=== PATIENT | female | born 1970 | race Caucasian/White ===

== ENCOUNTER 2023-07-17 15:49 | Inpatient (IN) | payer BC ==
[~2023-07-17] VITALS: Ht 154.9 cm; Wt 91.0 kg
[2023-07-17] MEDS: normal saline 1000ML IV soln IVB ONE ×2 (18:08→20:16)
[2023-07-17 18:16] LABS: BASOPHILS # (AUTO) 0.1 X10'3 (0-0.2); EOSINOPHILS % (AUTO) 0.3 % (0-6); HEMOGLOBIN 12.2 g/dl (12.0-16.0); LYMPHOCYTES # (AUTO) 1.7 X10'3 (1.1-4.8); MEAN CORPUSCULAR HEMOGLOBIN 29.1 PG (27.0-31.0); MEAN CORPUSCULAR VOLUME 88.4 FL (78-98); MEAN PLATELET VOLUME 8.6 FL (7.4-10.4); MONOCYTES # (AUTO) 0.4 X10'3 (0-0.9); MONOCYTES % (AUTO) 3.7 % (2-12); NEUTROPHILS # (AUTO) 8.3 X10'3 (1.8-7.7); PLATELET COUNT 333 X10'3 (140-440); RED BLOOD COUNT 4.19 X10'6 (4.20-5.60); RED CELL DISTRIBUTION WIDTH 15.2 % (11.5-14.5); WHITE BLOOD COUNT 10.5 X10'3 (4.5-11.0)
[2023-07-17] MEDS: LORazepam 2 mg/ml vial IV ONE (19:15)
[2023-07-17 19:45] LABS: D-DIMER 6.69 MG/L FEU (0-0.50)
[2023-07-17 19:48] LABS: ALBUMIN 2.4 G/DL (3.4-5.0); ANION GAP 10 (8-16); BLOOD UREA NITROGEN 14 MG/DL (7-18); BUN/CREATININE RATIO 20.3 (10.0-20.0); CALCIUM 6.6 MG/DL (8.5-10.1); CHLORIDE 114 MMOL/L (99-107); CREATININE 0.69 MG/DL (0.40-0.90); GLUCOSE 125 MG/DL (70-104); PRO BRAIN NATRIURETIC PEPTIDE 9698 PG/ML (0-125); SODIUM 145 MMOL/L (135-145); TOTAL CARBON DIOXIDE 20.6 MMOL/L (24-32); eCRCL 73 ML/MIN; eGFR 90 ML/MIN
[2023-07-17 19:51] LABS: POTASSIUM 3.9 MMOL/L (3.5-5.1)
[2023-07-17] MEDS ORDERED: iohexol 350MG/ML 100ml bottle IV ONE (20:24)
[2023-07-17] MEDS ORDERED: ondansetron/PF 4mg/2ml inj IV PRN (20:25)
[2023-07-17] MEDS ORDERED: magnesium 4gm in 100ml NS 100 ML IV PRN (20:25)
[2023-07-17] MEDS ORDERED: magnesium 2GM in 50ml NS 50 ML IV PRN (20:25)
[2023-07-17] MEDS ORDERED: acetaminophen 325mg tablet PO PRN (20:25)
[2023-07-17] MEDS ORDERED: magnesium hydroxide 30ml (MOM) UD suspension PO PRN (20:25)
[2023-07-17] MEDS ORDERED: potassium Cl 20 mEq SR tablet PO PRN ×2 (20:25)
[2023-07-17] MEDS ORDERED: morphine 2 MG/ML inj. syringe IV PRN (20:25)
[2023-07-17] MEDS ORDERED: potassium Cl 40MEQ/1/2NS 520ml 520 ML IV PRN (20:25)
[2023-07-17] MEDS: normal saline 1000ml 1,000 ML IV SCH (21:05)
[2023-07-17] MEDS ORDERED: tenecteplase 50mg kit IV ONE (21:45)
[2023-07-17 21:49] LABS: BILIRUBIN,URINE NEGATIVE (Neg); CLARITY,URINE CLOUDY (Clear); COLOR,URINE YELLOW (Yellow); GLUCOSE, URINE NEGATIVE (Neg); KETONES,URINE NEGATIVE (Neg); LEUKOCYTE ESTERASE ,URINE NEGATIVE (Neg); NITRITES, URINE NEGATIVE (Neg); OCCULT BLOOD,URINE TRACE-INTACT (Neg); PH,URINE 5.5 (4.8-8.0); PROTEIN,URINE TRACE mg/dl (Neg)
[2023-07-17 21:51] LABS: UA COLLECTION TYPE OTHER
[2023-07-17 21:56] LABS: BACTERIA,URINE 1+ /HPF (Neg); RBC,URINE 0-2 /HPF (0-2); SQUAMOUS EPITHELIAL CELL,UR FEW /LPF (FEW)
[2023-07-17] MEDS: tenecteplase 50mg kit IV ONE (22:30)
[2023-07-17 22:34] LABS: APTT 27 SECONDS (22-32); INR 1.1 INR; PROTHROMBIN TIME 11.5 SECONDS (9.0-12.0)
[2023-07-17] MEDS ORDERED: GABA600T13 PO (23:18)
[2023-07-17] MEDS ORDERED: FURO20TA4 PO (23:18)
[2023-07-17] MEDS ORDERED: GABA-530 PO (23:18)
[2023-07-17] MEDS ORDERED: TIZA4CAP PO (23:19)
[2023-07-18] VITALS (34 sets, daily range): BP systolic 92–142; BP diastolic 48–90; PULSE 67–88; RESP 12–23; TEMP 96.6–98.8; O2SAT 92–99
[2023-07-18] MEDS ORDERED: gabapentin 300mg capsule PO SCH (00:09)
[2023-07-18] MEDS: gabapentin 300mg capsule PO SCH ×4 (00:35→20:04)
[2023-07-18] MEDS: tizanidine 4mg tablet PO PRN (00:36)
[2023-07-18] MEDS: levetiracetam 250mg tablet PO SCH (00:36)
[2023-07-18] MEDS ORDERED: acetaminophen 325mg tablet PO PRN ×2 (00:45)
[2023-07-18] MEDS ORDERED: magnesium hydroxide 30ml (MOM) UD suspension PO PRN (00:45)
[2023-07-18] MEDS ORDERED: morphine 2 MG/ML inj. syringe IV PRN (00:45)
[2023-07-18] MEDS: LidoCAINE 2% Topical Jelly 11mL syringe TOP ONE (00:45)
[2023-07-18] MEDS ORDERED: IBUP-1986 PO (02:53)
[2023-07-18] MEDS ORDERED: GABA600T13 PO (02:53)
[2023-07-18] MEDS: morphine 4 MG/ML inj SYRINge IV PRN (04:59)
[2023-07-18 06:04] LABS: BASOPHILS # (AUTO) 0.1 X10'3 (0-0.2); BASOPHILS % (AUTO) 0.7 % (0-1); EOSINOPHILS # (AUTO) 0.1 X10'3 (0-0.9); EOSINOPHILS % (AUTO) 1.2 % (0-6); HEMOGLOBIN 10.7 g/dl (12.0-16.0); LYMPHOCYTES # (AUTO) 2.6 X10'3 (1.1-4.8); LYMPHOCYTES % (AUTO) 30.7 % (21-51); MEAN CORPUSCULAR HEMOGLOBIN 28.5 PG (27.0-31.0); MEAN CORPUSCULAR HGB CONC 32.5 g/dL (33.0-36.5); MEAN CORPUSCULAR VOLUME 87.7 FL (78-98); MEAN PLATELET VOLUME 8.5 FL (7.4-10.4); MONOCYTES # (AUTO) 0.7 X10'3 (0-0.9); MONOCYTES % (AUTO) 7.7 % (2-12); NEUTROPHILS # (AUTO) 5.1 X10'3 (1.8-7.7); NEUTROPHILS % (AUTO) 59.7 % (42-75); PLATELET COUNT 248 X10'3 (140-440); RED BLOOD COUNT 3.76 X10'6 (4.20-5.60); WHITE BLOOD COUNT 8.5 X10'3 (4.5-11.0)
[2023-07-18 06:36] LABS: ALANINE AMINOTRANSFERASE 22 U/L (12-78); ALBUMIN 2.8 G/DL (3.4-5.0); ALBUMIN/GLOBULIN RATIO 0.8 (1.1-1.5); ALKALINE PHOSPHATASE 100 IU/L (46-116); ANION GAP 10 (8-16); ASPARTATE AMINO TRANSFERASE 19 U/L (10-37); BILIRUBIN,TOTAL 0.5 MG/DL (0.1-1.0); BLOOD UREA NITROGEN 16 MG/DL (7-18); BUN/CREATININE RATIO 23.2 (10.0-20.0); CALCIUM 8.4 MG/DL (8.5-10.1); CHLORIDE 108 MMOL/L (99-107); CREATININE 0.69 MG/DL (0.40-0.90); GLUCOSE 99 MG/DL (70-104); MAGNESIUM 2.3 MG/DL (1.5-2.4); POTASSIUM 3.9 MMOL/L (3.5-5.1); SODIUM 141 MMOL/L (135-145); TOTAL CARBON DIOXIDE 23.4 MMOL/L (24-32); TOTAL PROTEIN 6.4 G/DL (6.4-8.2); eCRCL 73 ML/MIN; eGFR 90 ML/MIN
[2023-07-18] MEDS: docusate sod 100mg capsule PO SCH (07:06)
[2023-07-18] MEDS: furosemide 20MG tablet PO SCH (07:07)
[2023-07-18] MEDS: morphine 2 MG/ML inj. syringe IV PRN (07:08)
[2023-07-18] MEDS: K and/or MAG REPLACEMENT MC SCH (08:00)
[2023-07-18] MEDS: PERFLUTREN PROTEIN-A MICROSPHR (Optison) 0.22 MG/ML 3ML VIAL IV ONE (08:35)
[2023-07-18] MEDS: enoxaparin 40mg/0.4ml syringe SQ SCH (13:35)
[2023-07-18] MEDS ORDERED: GABA300C PO (14:58)
[2023-07-18] MEDS ORDERED: LEVO175T7 PO (14:58)
[2023-07-18] MEDS ORDERED: PANT-47 PO (14:58)
[2023-07-18] MEDS ORDERED: enoxaparin 40mg/0.4ml syringe SQ SCH (20:00)
[2023-07-19] MEDS: vancomycin/NS 1 GM ADD-VANTAGE 250 ML IV ONE (01:35)
[2023-07-19 02:00] VITALS: BP 116/74; PULSE 77; RESP 21
[2023-07-19] MEDS: VANCOMYCIN 750MG IV in NS 250 ML IV ONE (03:19)
[2023-07-19 07:00] VITALS: BP 130/76; PULSE 95; RESP 18; TEMP 98.6; O2SAT 93
[2023-07-19 07:08] LABS: BASOPHILS # (AUTO) 0.1 X10'3 (0-0.2); BASOPHILS % (AUTO) 0.8 % (0-1); EOSINOPHILS # (AUTO) 0.2 X10'3 (0-0.9); EOSINOPHILS % (AUTO) 2.8 % (0-6); HEMATOCRIT 30.5 % (35.0-45.0); HEMOGLOBIN 9.7 g/dl (12.0-16.0); LYMPHOCYTES # (AUTO) 1.8 X10'3 (1.1-4.8); LYMPHOCYTES % (AUTO) 23.5 % (21-51); MEAN CORPUSCULAR HEMOGLOBIN 27.9 PG (27.0-31.0); MEAN CORPUSCULAR HGB CONC 31.9 g/dL (33.0-36.5); MEAN CORPUSCULAR VOLUME 87.6 FL (78-98); MEAN PLATELET VOLUME 8.4 FL (7.4-10.4); MONOCYTES # (AUTO) 0.6 X10'3 (0-0.9); MONOCYTES % (AUTO) 7.4 % (2-12); NEUTROPHILS % (AUTO) 65.5 % (42-75); PLATELET COUNT 257 X10'3 (140-440); RED BLOOD COUNT 3.48 X10'6 (4.20-5.60); RED CELL DISTRIBUTION WIDTH 14.9 % (11.5-14.5); WHITE BLOOD COUNT 7.6 X10'3 (4.5-11.0)
[2023-07-19 07:25] LABS: ALANINE AMINOTRANSFERASE 15 U/L (12-78); ALBUMIN 2.7 G/DL (3.4-5.0); ALBUMIN/GLOBULIN RATIO 0.8 (1.1-1.5); ALKALINE PHOSPHATASE 95 IU/L (46-116); ANION GAP 7 (8-16); ASPARTATE AMINO TRANSFERASE 15 U/L (10-37); BILIRUBIN,TOTAL 0.4 MG/DL (0.1-1.0); BLOOD UREA NITROGEN 11 MG/DL (7-18); BUN/CREATININE RATIO 18.3 (10.0-20.0); CHLORIDE 108 MMOL/L (99-107); CHOL/HDL RATIO 5.8 (0.00-4.99); CHOLESTEROL 162 MG/DL (0-200); GLUCOSE 93 MG/DL (70-104); HDL CHOLESTEROL 28 MG/DL (35-60); LDL CHOLESTEROL 108 MG/DL (50-100); MAGNESIUM 2.1 MG/DL (1.5-2.4); SODIUM 139 MMOL/L (135-145); TOTAL CARBON DIOXIDE 23.6 MMOL/L (24-32); TOTAL PROTEIN 6.2 G/DL (6.4-8.2); TRIGLYCERIDES 122 MG/DL (20-135); eCRCL 84 ML/MIN; eGFR > 90 ML/MIN
[2023-07-19] MEDS ORDERED: HYDROcodone/acetaminophen 5mg/325mg tablet PO PRN (09:40)
[2023-07-19 11:00] VITALS: BP 106/64; PULSE 66; RESP 16; TEMP 97.1; O2SAT 97
[2023-07-19] MEDS: vancomycin/NS 1 GM ADD-VANTAGE 250 ML IV SCH (11:18)
[2023-07-19] MEDS: gabapentin 300mg capsule PO SCH ×2 (12:30→21:00)
[2023-07-19] MEDS: HYDROcodone/acetaminophen 10/325mg tab PO PRN (13:12)
[2023-07-19] MEDS: CefTRIAXone/D5W-Rocephin 1gm 50 ML IV ONE (14:11)
[2023-07-19 18:00] VITALS: BP 155/95; PULSE 74; RESP 15; TEMP 98.3; O2SAT 96
[2023-07-19 20:00] VITALS: RESP 15; O2SAT 96
[2023-07-19 22:00] VITALS: BP 125/87; PULSE 68; RESP 17; TEMP 98.1; O2SAT 97
[2023-07-20 02:00] VITALS: BP 124/74; PULSE 71; RESP 15; TEMP 97.7; O2SAT 96
[2023-07-20] MEDS: VANCOMYCIN LEVEL IJ ONE (02:30)
[2023-07-20 03:05] LABS: BASOPHILS # (AUTO) 0.1 X10'3 (0-0.2); BASOPHILS % (AUTO) 0.8 % (0-1); EOSINOPHILS # (AUTO) 0.3 X10'3 (0-0.9); HEMATOCRIT 30.2 % (35.0-45.0); LYMPHOCYTES % (AUTO) 29.3 % (21-51); MEAN CORPUSCULAR HEMOGLOBIN 28.6 PG (27.0-31.0); MEAN CORPUSCULAR HGB CONC 33.1 g/dL (33.0-36.5); MEAN CORPUSCULAR VOLUME 86.6 FL (78-98); MONOCYTES # (AUTO) 0.6 X10'3 (0-0.9); MONOCYTES % (AUTO) 8.8 % (2-12); NEUTROPHILS # (AUTO) 3.8 X10'3 (1.8-7.7); NEUTROPHILS % (AUTO) 57.1 % (42-75); PLATELET COUNT 274 X10'3 (140-440); RED BLOOD COUNT 3.49 X10'6 (4.20-5.60); WHITE BLOOD COUNT 6.7 X10'3 (4.5-11.0)
[2023-07-20 03:19] LABS: ALANINE AMINOTRANSFERASE 18 U/L (12-78); ALBUMIN 2.4 G/DL (3.4-5.0); ALBUMIN/GLOBULIN RATIO 0.7 (1.1-1.5); ALKALINE PHOSPHATASE 91 IU/L (46-116); ANION GAP 10 (8-16); ASPARTATE AMINO TRANSFERASE 14 U/L (10-37); BILIRUBIN,TOTAL 0.2 MG/DL (0.1-1.0); BLOOD UREA NITROGEN 9 MG/DL (7-18); BUN/CREATININE RATIO 14.1 (10.0-20.0); CHLORIDE 108 MMOL/L (99-107); CREATININE 0.64 MG/DL (0.40-0.90); GLUCOSE 100 MG/DL (70-104); MAGNESIUM 2.1 MG/DL (1.5-2.4); POTASSIUM 3.8 MMOL/L (3.5-5.1); SODIUM 140 MMOL/L (135-145); TOTAL CARBON DIOXIDE 22.2 MMOL/L (24-32); TOTAL PROTEIN 5.9 G/DL (6.4-8.2); eCRCL 78 ML/MIN; eGFR > 90 ML/MIN
[2023-07-20 03:22] LABS: VANCOMYCIN,TROUGH 27.8 ug/mL (10.0-20.0)
[2023-07-20 06:00] VITALS: BP 140/83; PULSE 79; RESP 17; TEMP 97.7; O2SAT 96
[2023-07-20 07:00] VITALS: BP 137/89; PULSE 72; RESP 12; TEMP 98.4; O2SAT 97
[2023-07-20] MEDS: levoTHYROXINE 175mcg tablet PO SCH (08:24)
[2023-07-20] MEDS: pantoprazole 40mg Tablet.DR PO SCH (08:24)
[2023-07-20] MEDS: CefTRIAXone/D5W-Rocephin 1gm 50 ML IV SCH (08:25)
[2023-07-20] MEDS: vancomycin inj 500 MG in normal saline 100ml IV soln 100 ML IV SCH ×2 (11:20→20:11)
[2023-07-20 18:00] VITALS: BP 159/89; PULSE 78; RESP 16; TEMP 97.8; O2SAT 96
[2023-07-20 22:00] VITALS: BP 135/90; PULSE 72; RESP 20; TEMP 97.9; O2SAT 100
[2023-07-21 06:40] LABS: BASOPHILS # (AUTO) 0.1 X10'3 (0-0.2); BASOPHILS % (AUTO) 0.7 % (0-1); EOSINOPHILS # (AUTO) 0.5 X10'3 (0-0.9); EOSINOPHILS % (AUTO) 6.2 % (0-6); HEMATOCRIT 31.7 % (35.0-45.0); HEMOGLOBIN 10.5 g/dl (12.0-16.0); LYMPHOCYTES # (AUTO) 1.7 X10'3 (1.1-4.8); LYMPHOCYTES % (AUTO) 23.2 % (21-51); MEAN CORPUSCULAR HEMOGLOBIN 28.7 PG (27.0-31.0); MEAN CORPUSCULAR HGB CONC 33.1 g/dL (33.0-36.5); MEAN CORPUSCULAR VOLUME 86.6 FL (78-98); MEAN PLATELET VOLUME 7.9 FL (7.4-10.4); MONOCYTES # (AUTO) 0.5 X10'3 (0-0.9); MONOCYTES % (AUTO) 7.3 % (2-12); NEUTROPHILS # (AUTO) 4.6 X10'3 (1.8-7.7); NEUTROPHILS % (AUTO) 62.6 % (42-75); PLATELET COUNT 303 X10'3 (140-440); RED BLOOD COUNT 3.66 X10'6 (4.20-5.60); RED CELL DISTRIBUTION WIDTH 15.1 % (11.5-14.5); WHITE BLOOD COUNT 7.4 X10'3 (4.5-11.0)
[2023-07-21 06:51] LABS: ALANINE AMINOTRANSFERASE 17 U/L (12-78); ALBUMIN 2.3 G/DL (3.4-5.0); ALBUMIN/GLOBULIN RATIO 0.6 (1.1-1.5); ALKALINE PHOSPHATASE 89 IU/L (46-116); ANION GAP 7 (8-16); ASPARTATE AMINO TRANSFERASE 13 U/L (10-37); BILIRUBIN,TOTAL 0.3 MG/DL (0.1-1.0); BLOOD UREA NITROGEN 8 MG/DL (7-18); BUN/CREATININE RATIO 13.6 (10.0-20.0); CALCIUM 8.6 MG/DL (8.5-10.1); CHLORIDE 107 MMOL/L (99-107); CREATININE 0.59 MG/DL (0.40-0.90); GLUCOSE 102 MG/DL (70-104); MAGNESIUM 2.2 MG/DL (1.5-2.4); POTASSIUM 4.1 MMOL/L (3.5-5.1); SODIUM 140 MMOL/L (135-145); TOTAL CARBON DIOXIDE 26.4 MMOL/L (24-32); TOTAL PROTEIN 5.9 G/DL (6.4-8.2); eCRCL 85 ML/MIN; eGFR > 90 ML/MIN
[2023-07-21 07:00] VITALS: BP 141/89; PULSE 76; RESP 12; TEMP 97.3; O2SAT 94
[2023-07-21] MEDS: VANCOMYCIN LEVEL IV ONE (11:11)
[2023-07-21 11:21] VITALS: BP 134/89; PULSE 74; RESP 16; TEMP 98; O2SAT 100
[2023-07-21] MEDS: vancomycin inj 500 MG in normal saline 100ml IV soln 100 ML IV SCH (12:35)
[2023-07-21 15:05] LABS: THYROID STIMULATING HORMONE 8.43 ulU/ml (0.34-4.50)
[2023-07-21 18:00] VITALS: BP 153/79; PULSE 77; RESP 16; TEMP 97.8; O2SAT 94
[2023-07-21 22:00] VITALS: BP 135/89; PULSE 91; RESP 20; TEMP 98.1; O2SAT 99
[2023-07-21] MEDS: ondansetron/PF 4mg/2ml inj IV PRN (22:33)
[2023-07-22 02:00] VITALS: BP 98/56; PULSE 69; RESP 20; TEMP 97.6; O2SAT 94
[2023-07-22 07:14] VITALS: BP 161/105; PULSE 62; RESP 17; TEMP 97.7; O2SAT 97
[2023-07-22] MEDS: ibuprofen tablet 400 MG TABLET PO PRN (08:54)
[2023-07-22] MEDS ORDERED: HYDR-3972 PO (09:49)
[2023-07-22] MEDS ORDERED: APIX5TAB3 PO (09:49)
[2023-07-22 11:30] VITALS: BP 108/70; PULSE 73; RESP 18; TEMP 98.3; O2SAT 95
[2023-07-22] MEDS ORDERED: VANCOMYCIN LEVEL IV ONE (23:30)
== END 2023-07-22 12:45 | disposition home or self-care (01) | DRG 175 ==
LOC: ER 15:50 → ED HOLD 20:54 → UNDOADMIN 20:54 → EDBEDREQSVC 21:20 → EDBEDREQ 22:15 → EDBEDREQSVC 22:15 → UNDOADMIN 07-18 00:50 → ED HOLD 07-18 00:50 → ICU 2S 07-18 02:28 → ED HOLD 07-18 02:28 → ICU 2S 07-18 23:40 → PCU 3S 07-18 23:40 → UNDODISIN 07-21 16:51
PROVIDERS: ADMIT Family Medicine; ATTEND Family Medicine
DX: I26.92 Saddle embolus of pulmonary artery without acute cor pulmonale (principal); I21.A1 Myocardial infarction type 2; G82.20 Paraplegia, unspecified; N17.9 Acute kidney failure, unspecified; I07.1 Rheumatic tricuspid insufficiency; K21.9 Gastro-esophageal reflux disease without esophagitis; E86.1 Hypovolemia; I95.9 Hypotension, unspecified; R79.89 Other specified abnormal findings of blood chemistry; Z20.822 Contact with and (suspected) exposure to COVID-19; F41.9 Anxiety disorder, unspecified; I12.9 Hypertensive chronic kidney disease with stage 1 through stage 4 chronic kidney disease, or unspecified chronic kidney disease; G62.9 Polyneuropathy, unspecified; R06.4 Hyperventilation; N18.1 Chronic kidney disease, stage 1; E03.9 Hypothyroidism, unspecified; Z79.899 Other long term (current) drug therapy; Z74.01 Bed confinement status
CPT/HCPCS: 36415; 70450; 71045; 71275; 80048; 80053; 80061; 80202; 81001; 82948; 83605; 83735; 83880; 84443; 84484; 85025; 85379; 85610; 85730; 86885; 86900; 86901; 87040; 87077; 87081; 87088; 87186; 87811; 93005; 93306; 93970; 97161; 97530; 99285; A4615; A6212; A6258; G0378; J0696; J1650; J2060; J2270; J2405; J3101; J3370; J3490; J7030; J7050; Q9967